=== PATIENT | female | born 1930 | race Caucasian/White ===

== ENCOUNTER → 2016-11-28 | Outpatient (CLI) | payer BC ==
[~2016-11-28] MED LIST: ACC10 PO; ACET-1311 PO; ARTISPR PO; ASPI81TA28 PEG; ATOR-24 PEG; BISA10SU3 PR; CALC-354 PO; CALC200T PEG; CLCUDL PEG; DOXY-300; IPRASOL4 INH; LANS30TA3 PEG; LPT40 PO; MCRK20 PEG; METO50TA16 PEG; METO50TA17 PEG; MOMLX PEG; MRLP527 PEG; MULT-1028 PEG; NUTR-673 PEG; PRNJ PO; QUIN1TAB PEG; SALI0.6510 NAE; SERT1TAB88 PEG; SODIENE PR; ZLF50 PO; [UNRECOGNIZED DRUG - CODE] PO
[2016-11-28 08:37] LABS: ALT/SGPT 19 U/L (12-78); BLOOD UREA NITROGEN 31 mg/dl (7-18); BUN/CREATININE RATIO 32.3 (10-20); CALCIUM 8.4 mg/dl (8.5-10.1); CARBON DIOXIDE 30 mmol/L (21-32); CHLORIDE 105 mmol/L (98-107); CREATININE 0.97 mg/dl (0.60-1.20); GLUCOSE 104 mg/dl (70-99); POTASSIUM 3.5 mmol/L (3.5-5.1); SODIUM 142 mmol/L (136-145)
[2016-11-28 08:40] LABS: ALB/GLOB RATIO 0.8 (0.9-2); ALKALINE PHOSPHATASE 70 U/L (45-117); AST/SGOT 19 U/L (15-37)
== END ==
LOC: C.LABCC 07:39
PROVIDERS: ATTEND Internal Medicine
DX: Z93.1 Gastrostomy status (principal); Z86.73 Personal history of transient ischemic attack (TIA), and cerebral infarction without residual deficits

== ENCOUNTER 2017-05-01 14:23 | Inpatient (IN) | payer BC ==
[2017-05-01] VITALS (10 sets, daily range): BP systolic 99–137; BP diastolic 68–88; PULSE 79–119; TEMP 36.6–37.6; O2SAT 96–97; Ht 160 cm; Wt 58.5 kg
[~2017-05-01] VITALS: Ht 160 cm; Wt 58.5 kg
[~2017-05-01 14:23] MED LIST changes: -ARTISPR PO; -ATOR-24 PEG; -BISA10SU3 PR; -CALC200T PEG; -DOXY-300; -IPRASOL4 INH; -METO50TA16 PEG; -MOMLX PEG; -MRLP527 PEG; -MULT-1028 PEG; -NUTR-673 PEG; -PRNJ PO; -QUIN1TAB PEG; -SALI0.6510 NAE; -SERT1TAB88 PEG; -SODIENE PR
[2017-05-01] MEDS ORDERED: IPRASOL4 INH (15:12)
[2017-05-01] MEDS ORDERED: SODIENE PR (15:12)
[2017-05-01] MEDS ORDERED: CALC200T PEG (15:12)
[2017-05-01] MEDS ORDERED: MULT-1028 PEG (15:12)
[2017-05-01] MEDS ORDERED: PRNJ PO (15:12)
[2017-05-01] MEDS ORDERED: QUIN1TAB PEG (15:12)
[2017-05-01] MEDS ORDERED: ATOR-24 PEG (15:12)
[2017-05-01] MEDS ORDERED: METO50TA16 PEG (15:12)
[2017-05-01] MEDS ORDERED: SERT1TAB88 PEG (15:12)
[2017-05-01] MEDS ORDERED: BISA10SU3 PR (15:12)
[2017-05-01] MEDS ORDERED: ARTISPR PO (15:12)
[2017-05-01] MEDS ORDERED: NUTR-673 PEG (15:12)
[2017-05-01] MEDS ORDERED: MRLP527 PEG (15:12)
[2017-05-01] MEDS ORDERED: MOMLX PEG (15:12)
[2017-05-01] MEDS ORDERED: SALI0.6510 NAE (15:12)
[2017-05-01 15:14] LABS: BASO % 0.4 %; BASO ABS # 0.05 K/uL (0-0.2); COMPLETE YES; EOS % 1.2 %; HEMATOCRIT 47.7 % (37-47); IG% 0.4 %; LYMPH % 17.6 %; LYMPH ABS # 2.49 K/uL (1.2-3.4); MEAN CELL VOLUME 101.3 fL (80-100); MEAN CORPUSCULAR HEMOGLOBIN 31.4 pg (25-34); MEAN PLATELET VOLUME 12.2 fL (7.4-10.4); MONO % 9.9 %; NEUT % 70.5 %; PLATELET COUNT 218 K/uL (130-400); RED BLOOD COUNT 4.71 M/uL (4.2-5.4); WHITE BLOOD COUNT 14.11 K/uL (4.8-10.8)
[2017-05-01 15:23] LABS: PROTHROMBIN TIME (PATIENT) 11.1 SECONDS (9.0-12.0)
--- NOTE | 2017-05-01 15:23 | EMERGENCY ROOM VISIT NOTE ---
History Report prepared by Madi: Willa Valenzuela Under the Supervision of: Dr. Dariusz Trinidad M.D. First contact with patient: 15:03 Chief Complaint: RESPIRATORY DISTRESS Stated Complaint: BREATHING DIFFICULTY Nursing Triage Summary: pt here with increased resp distress over the past couple days. pt has audible rales, tachypneic. pt is nonverbal, bedridden from 2 previous strokes. pt lives at [facility]. History of Present Illness The patient is a 86 year old female who presents to the Emergency Room with complaints of constant shortness of breath beginning last night. Per nursing staff, the patient lives at [facility] and is nonverbal and bedridden. She has a history of 2 strokes. The patient's family note that she is on a feeding tube and has a history of CHF. They report that they got a call last night from her living facility staff noting that the patient's oxygen saturations were low. HPI limited secondary to patient being nonverbal. Source of History: family, nursing staff History Limited By: other (nonverbal) Onset: last night Position: other (global) Quality: other (SOB) Timing: constant Review of Systems See HPI for pertinent positives & negatives. ROS limited secondary to pt being nonverbal. Past Medical & Surgical Medical Problems: (1) Acute respiratory failure with hypoxia (2) Alzheimer's Disease (3) Depression (4) Diaphragmatic Hernia (5) Dyslipidemia (6) GERD (gastroesophageal reflux disease) (7) Hip fracture (8) History Of Falling (9) HTN (hypertension) (10) Mixed Hyperlipidemia (11) Osteoporosis Nos (12) Scoliosis Nec (13) Vitamin D Deficiency Nos Family History Diabetes mellitus Heart disease Hypertension Social History Smoking Status: Never Smoker Alcohol Use: none Drug Use: none Marital Status: single, Housing Status: lives alone Occupation Status: retired Current/Historical Medications Scheduled Aspirin (Aspirin Ec), 81 MG PEG QAM Atorvastatin (Lipitor), 40 MG PEG HS Calcium Carbonate-Vitamin D (Oscal 500/200 D-3), 1 TAB PEG BID Enteral Nutrition Formula (Jevity 1.5 [place]), PEG UD Ipratropium-Albuterol (Duoneb), 1 TREATMENT INH QID Metoprolol Tartrate (Lopressor) (Lopressor), 50 MG PEG Q12 Multiple Vitamins W/ Iron (Multi Vitamin with Iron), 1 TAB PEG QAM Polyethylene (Polyethylene Glycol 3350), 17 GM PEG DAILY Quinapril HCl (Quinapril HCl), 10 MG PEG QAM Sertraline HCl (Sertraline HCl), 25 MG PEG QPM Scheduled PRN Acetaminophen (Tylenol), 650 MG PO Q6 PRN for Pain Artificial Saliva (Biotene Moisturizing Mout), 1 SPRAY PO Q6 PRN for DRY MOUTH Bisacodyl (Dulcolax), 1 SUPP AR DAILY PRN for NO BM IN DAY 3 Prune Juice (Prune Juice ), 8 OZ PO DAILY PRN for NO BM IN 2 DAYS Saline ([place] Nasal [place]), 2 SPRAY HECTOR DAILY PRN for NASAL STUFFINESS Sodium Phosphate/Biphosphate (Fleet Enema), 1 EA AR DAILY PRN for NO BM IN DAY 4 Allergies Coded Allergies: No Known Allergies (Unverified , 05/01/17) Physical Exam Vital Signs Date Time Temp Pulse Resp B/P (MAP) Pulse Ox O2 Delivery O2 Flow Rate FiO2 05/01/17 18:00 118 20 102/84 95 BiPAP 05/01/17 17:30 117 36 111/73 95 BiPAP 05/01/17 17:05 115 33 106/75 98 BiPAP 05/01/17 16:30 121 35 137/88 95 BiPAP 05/01/17 16:22 37.6 119 44 137/88 96 BiPAP 05/01/17 16:01 119 96 05/01/17 15:59 119 24 96 Nasal Cannula 4.0 05/01/17 15:45 119 36 137/88 96 BiPAP 05/01/17 14:38 37.6 127 44 123/87 88 Room Air 05/01/17 14:38 96 Nasal Cannula 6.0 Free Flow/Blow[place] 05/01/17 14:31 128 Physical Exam GENERAL: Patient is a healthy-appearing well-nourished [] HEAD: Normocephalic atraumatic EYES: Ocular movements intact pupils equal and react to light OROPHARYNX mucous membranes are moist no exudates present no erythema or edema present NECK: Supple no nuchal rigidity CHEST: Good equal expansion LUNGS: Appears short of breath, air hungry, rales at bases bilaterally CARDIAC: Normal S1 and S2 ABDOMEN: Soft nontender no guarding BACK: No CVA tenderness EXTREMITIES: No pain upon palpation normal muscle strength in all groups no clubbing cyanosis or edema NEURO: Patient is following commands and answering questions appropriately. Alert and oriented x3 Cranial Nerves 2-12 grossly intact Medical Decision & Procedures ER Provider Diagnostic Interpretation: X-ray results as stated below per interpretation by me and the radiologist: CHEST ONE VIEW PORTABLE FINDINGS: Atherosclerosis of the aortic arch. The left heart border is obscured due to left basilar opacity, new from prior, likely left basilar consolidation and effusion. Mildly low lung volumes with hypoventilatory changes. S-shaped scoliotic curvature of the thoracolumbar spine. Cholecystectomy clips noted. IMPRESSION: 1. Left basilar consolidation possibly with effusion, concerning for pneumonia. Electronically signed by: Jona Wallace M.D. 05/01/2017 3:33 PM Dictated Date/Time: 05/01/2017 3:31 PM Laboratory Results 05/01/17 15:00 Red Blood Count 4.71, Mean Corpuscular Volume 101.3, Mean Corpuscular Hemoglobin 31.4, Mean Corpuscular Hemoglobin Concent 31.0, Mean Platelet Volume 12.2, Neutrophils (%) (Auto) 70.5, Lymphocytes (%) (Auto) 17.6, Monocytes (%) ( Auto) 9.9, Eosinophils (%) (Auto) 1.2, Basophils (%) (Auto) 0.4, Neutrophils # ( Auto) 9.94, Lymphocytes # (Auto) 2.49, Monocytes # (Auto) 1.40, Eosinophils # ( Auto) 0.17, Basophils # (Auto) 0.05 05/01/17 15:00 Test 05/01/17 15:00 05/01/17 15:01 05/01/17 15:30 05/01/17 16:02 White Blood Count 14.11 K/uL (4.8-10.8) Red Blood Count 4.71 M/uL (4.2-5.4) Hemoglobin 14.8 g/dL (12.0-16.0) Hematocrit 47.7 % (37-47) Mean Corpuscular Volume 101.3 fL (80-100) Mean Corpuscular Hemoglobin 31.4 pg (25-34) Mean Corpuscular Hemoglobin Concent 31.0 g/dl (32-36) Platelet Count 218 K/uL (130-400) Mean Platelet Volume 12.2 fL (7.4-10.4) Neutrophils (%) (Auto) 70.5 % Lymphocytes (%) (Auto) 17.6 % Monocytes (%) (Auto) 9.9 % Eosinophils (%) (Auto) 1.2 % Basophils (%) (Auto) 0.4 % Neutrophils # (Auto) 9.94 K/uL (1.4-6.5) Lymphocytes # (Auto) 2.49 K/uL (1.2-3.4) Monocytes # (Auto) 1.40 K/uL (0.11-0.59) Eosinophils # (Auto) 0.17 K/uL (0-0.5) Basophils # (Auto) 0.05 K/uL (0-0.2) RDW Standard Deviation 59.3 fL (36.4-46.3) RDW Coefficient of Variation 15.8 % (11.5-14.5) Immature Granulocyte % (Auto) 0.4 % Immature Granulocyte # (Auto) 0.06 K/uL (0.00-0.02) Prothrombin Time 11.1 SECONDS (9.0-12.0) Prothromb Time International Ratio 1.0 (0.9-1.1) Anion Gap 9.0 mmol/L (3-11) Estimated GFR () 43.0 Estimated GFR (Non- 37.1 BUN/Creatinine Ratio 40.1 (10-20) Calcium Level 9.0 mg/dl (8.5-10.1) Total Bilirubin 0.5 mg/dl (0.2-1) Aspartate Amino Transf (AST/SGOT) 26 U/L (15-37) Alanine Aminotransferase (ALT/SGPT) 31 U/L (12-78) Alkaline Phosphatase 84 U/L (45-117) Total Creatine Kinase 196 U/L (26-192) Creatine Kinase MB 0.7 ng/ml (0.5-3.6) Creatine Kinase MB Ratio 0.4 (0-3.0) Pro-B-Type Natriuretic Peptide 551 pg/ml (0-1800) Total Protein 7.6 gm/dl (6.4-8.2) Albumin 3.2 gm/dl (3.4-5.0) Globulin 4.4 gm/dl (2.5-4.0) Albumin/Globulin Ratio 0.7 (0.9-2) Bedside Lactic Acid Venous 2.15 mmol/L (0.90-1.70) Urine Color YELLOW Urine Appearance CLOUDY (CLEAR) Urine pH 7.0 (4.5-7.5) Urine Specific [place] 1.021 (1.000-1.030) Urine Protein 1+ (NEG) Urine Glucose (UA) NEG (NEG) Urine Ketones NEG (NEG) Urine Occult Blood TRACE (NEG) Urine Nitrite NEG (NEG) Urine Bilirubin NEG (NEG) Urine Urobilinogen NEG (NEG) Urine Leukocyte Esterase LARGE (NEG) Urine WBC (Auto) >30 /hpf (0-5) Urine RBC (Auto) 0-4 /hpf (0-4) Urine Hyaline Casts (Auto) 0 /lpf (0-5) Urine Epithelial Cells (Auto) 0-5 /lpf (0-5) Urine Bacteria (Auto) 2+ (NEG) Arterial Blood pH 7.49 (7.35-7.45) Arterial Blood Partial Pressure CO2 35 mmHg (35-46) Arterial Blood Partial Pressure O2 128 mm/Hg (80-95) Arterial Blood HCO3 26 mmol/L (19-24) Arterial Blood Oxygen Saturation 98.9 % (90-95) Arterial Blood Base Excess 3.0 mEq/L (-9-1.8) Arterial Blood Gas Delivery ZM85--30 PERCENT Nacho Test POS (POS) Test 05/01/17 16:57 Influenza Type A (RT-PCR) Neg for Influ A (NEG) Influenza Type A Antigen Neg for Influ A (NEG) Influenza Type B Antigen Neg for Influ B (NEG) Influenza Type B (RT-PCR) Neg for Influ B (NEG) Labs reviewed by ED physician. Medications Administered Medications (Trade) Dose Ordered Sig/Ann Route Start Time Stop Time Status Last Admin Dose Admin Albuterol/ Ipratropium (Duoneb) 12 ml ONE ONCE INH 05/01/17 15:30 05/01/17 15:31 DC 05/01/17 15:59 12 ML Piperacillin Sod/ Tazobactam Sod (Zosyn Iv) 4.5 gm NOW STAT IV 05/01/17 15:24 05/01/17 15:26 DC 05/01/17 16:27 4.5 GM Vancomycin HCl 1000 mg/Sodium Chloride 270 ml @ 125 mls/hr NOW STAT IV 05/01/17 15:24 05/01/17 17:33 DC 05/01/17 16:24 125 MLS/HR Sodium Chloride 500 ml @ 999 mls/hr Q31M STAT IV 05/01/17 15:26 05/01/17 15:56 DC 05/01/17 15:42 999 MLS/HR Magnesium Sulfate (Magnesium Sulfate) 1 gm NOW STAT IV 05/01/17 15:45 05/01/17 15:49 DC 05/01/17 16:25 1 GM Sodium Chloride 500 ml @ 999 mls/hr Q31M STAT IV 05/01/17 15:45 05/01/17 16:15 DC 05/01/17 15:45 999 MLS/HR ECG Indication: SOB/dyspnea Rate (beats per minute): 125 Rhythm: sinus tachycardia Findings: no acute ischemic change, no ectopy, other (old inferior infarct) ED Course 1503: Past medical records reviewed. The patient was evaluated in room C2. A complete history and physical examination was performed. 1524: Vancomycin HCl 1000mg/Sodium Chloride 270ml @ 125mls/hr IV, Zosyn IV 4.5gm IV. 1530: Duoneb 12ml INH. 1543: I discussed the patient's case with Dr. Boss, he has agreed to evaluate the patient for further management and care. 1545: Sodium Chloride 500 ml @ 999 mls/hr IV, Magnesium Sulfate 1gm IV. 1549: Upon reexamination the patient is doing well. I discussed results and treatment plan with the patient's family. They verbalize agreement and understanding. I spoke with Dr. Boss from the [facility] Hospitalist Service. The patient will be evaluated for further management. 0600: Levofloxacin 500mg IV. Medical Decision Differential diagnosis: Etiologies such as infections, reactive airway disease, pneumonia, pneumothorax , COPD, CHF, cardiac ischemia, pulmonary embolism, musculoskeletal, gastrointestinal, as well as others were entertained. Medication Reconciliation: I attest that I have personally reviewed the patient' s current medication list Blood Pressure Screening: Patient was found to have normal blood pressure on screening and does not require follow up. This is a 89-year-old female that presents emergency department hypoxic. The patient has elevation in white blood cell count and also has an elevation in her lactic acid. An IV was established, the patient was given Zosyn, Levaquin, vancomycin. Was also placed on BiPAP and given an hour-long breathing treatment along with magnesium. I did discuss the case with the hospitalist service who agreed to admit the patient. Patient was in agreement with the treatment plan. Consults Time Called: 1941 Consulting Physician: Dr. Boss [facility] Returned Call: 1944 I discussed the patient's case with Dr. Boss, he has agreed to evaluate the patient for further management and care. Impression Primary Impression: Hypoxia Additional Impression: Pneumonia Scribe Attestation The scribe's documentation has been prepared under my direction and personally reviewed by me in its entirety. I confirm that the note above accurately reflects all work, treatment, procedures, and medical decision making performed by me. Departure Information Dispostion Being Evaluated By Hospitalist Referrals TauntonNiall (PCP) Patient Instructions Asthma - [facility], COPD - [facility], Croup - [facility], My [facility] Problem Qualifiers Additional Impression: Pneumonia Pneumonia type: due to unspecified organism Laterality: right Lung location : unspecified part of lung Qualified Codes: J18.9 - Pneumonia, unspecified organism
[2017-05-01] MEDS ORDERED: PIPERACILLIN/TAZOBACTAM 4.5 GM/100ML D5W IV STA (15:24)
[2017-05-01] MEDS ORDERED: VANCOMYCIN INJ 1,000 MG in SODIUM CHLORIDE 0.9% 250ML 250 ML IV STA (15:24)
[2017-05-01] MEDS ORDERED: SODIUM CHLORIDE 0.9% 500ML 500 ML IV STA ×3 (15:26→19:40)
[2017-05-01] MEDS ORDERED: DOXY-300 (15:29)
[2017-05-01] MEDS ORDERED: ALBUT/IPRATROP 3MG/0.5MG NEB 3 ML VIAL INH ONE (15:30)
--- NOTE | 2017-05-01 15:34 | DIAGNOSTIC IMAGING REPORT ---
CHEST ONE VIEW PORTABLE CLINICAL HISTORY: 86 years-old Female presenting with Pt c/o SOB. TECHNIQUE: Portable upright AP view of the chest was obtained. COMPARISON: 02/02/2016. FINDINGS: Atherosclerosis of the aortic arch. The left heart border is obscured due to left basilar opacity, new from prior, likely left basilar consolidation and effusion. Mildly low lung volumes with hypoventilatory changes. S-shaped scoliotic curvature of the thoracolumbar spine. Cholecystectomy clips noted. IMPRESSION: 1. Left basilar consolidation possibly with effusion, concerning for pneumonia. Electronically signed by: Jona Wallace M.D. 05/01/2017 3:33 PM Dictated Date/Time: 05/01/2017 3:31 PM
[2017-05-01 15:35] LABS: ALT/SGPT 31 U/L (12-78); AST/SGOT 26 U/L (15-37); BLOOD UREA NITROGEN 52 mg/dl (7-18); BUN/CREATININE RATIO 40.1 (10-20); CARBON DIOXIDE 29 mmol/L (21-32); CHLORIDE 114 mmol/L (98-107); GLUCOSE 101 mg/dl (70-99); POTASSIUM 4.1 mmol/L (3.5-5.1); SODIUM 152 mmol/L (136-145)
[2017-05-01 15:40] LABS: ALB/GLOB RATIO 0.7 (0.9-2); ALKALINE PHOSPHATASE 84 U/L (45-117); CKMB/CK RATIO 0.4 (0-3.0)
[2017-05-01] MEDS ORDERED: MAGNESIUM SULFATE 1GM / D5W 1 GM BAG IV STA (15:45)
[2017-05-01 16:20] LABS: ARTERIAL BLD GAS O2 SATURATION 98.9 % (90-95); ARTERIAL BLOOD GAS HCO3 26 mmol/L (19-24); ARTERIAL BLOOD GAS PO2 128 mm/Hg (80-95); ARTERIAL BLOOD GAS pH 7.49 (7.35-7.45)
[2017-05-01 16:22] LABS: ALLEN TEST POS (POS); O2 ADMINISTRATION FI02--40 PERCENT
[2017-05-01 17:21] LABS: URINE APPEARANCE CLOUDY (CLEAR); URINE BILIRUBIN NEG (NEG); URINE COLOR YELLOW; URINE EPITHELIAL CELL AUTO 0-5 /lpf (0-5); URINE NITRITE NEG (NEG); URINE SPECIFIC GRAVITY 1.021 (1.000-1.030); UROBILINOGEN NEG (NEG); ZZURINE CULT IF INDIC CATH YES
[2017-05-01 17:22] LABS: MANUAL MICROSCOPIC REQUIRED? NO; REVIEW REQ? NO
[2017-05-01] MEDS ORDERED: SCOPOLAMINE 1.5 MG TDSY TD PRN (18:30)
[2017-05-01] MEDS ORDERED: LORAZEPAM 2 MG/ML 1 ML VIAL IV PRN (18:30)
[2017-05-01] MEDS ORDERED: ONDANSETRON INJ 2 MG/ML 2 ML VIAL IV PRN (18:30)
--- NOTE | 2017-05-01 18:35 | History and Physical ---
History & Physical Date & Time of Service: May 01, 2017 at 18:27 Chief Complaint: Breathing Difficulty Primary Care Physician: Niall Jay History of Present Illness Source: family Ms. Gonzalez is an 86 y/o female with PMHx of CVA x 2, Dementia, HLD, GERD, HTN, and Diastolic CHF who presents to the ED for acute respiratory distress. Patient is a resident of [facility]. She is non-verbal, bedridden, and has a PEG tube. History obtained from son's at bedside which is limited. Per their account, they were called by [facility] as patient was noted to have low oxygen saturations. Sons report that she was started on an antibiotic while there. She presented to the ED with tachycardia and tachypnea and was noted to be hypoxic at 88%. She received an hour-long Duoneb and son's state she appeared to improve. She began to experience more respiratory distress and was placed on BiPAP and continued to be tachycardic and tachypneic. Patient opens her eyes to her name but was not following commands. Had discussion with son's at bedside about code status who initially stated "no long-term ventilator" and CPR only if it would not be something terminal. Did explain that in these situations recovery is slim and it is hard to predict once intubation occurs what her general response will be. Dr. Boss discussed with son's at bedside. Explained that she may possibly have an aspiration pneumonia vs healthcare associated pneumonia. After discussion, the plan is to continue non-invasive measures including IV antibiotics, BiPAP, and implement medications to promote comfort while actively treating. They would like to continue to monitor overnight and pending response consideration for conversion to comfort measures only/Hospice. Past Medical/Surgical History Medical Problems: (1) Depression Status: Chronic (2) Dyslipidemia Status: Chronic (3) GERD (gastroesophageal reflux disease) Status: Chronic (4) Hip fracture Permanent Comment: bilat Status: Resolved (5) HTN (hypertension) Status: Chronic Family History Diabetes mellitus Heart disease Hypertension Social History Smoking Status: Never Smoker Smokeless Tobacco Use: No Alcohol Use: none Drug Use: none Marital Status: single, Housing status: intermediate, other Occupational Status: retired Immunizations History of Influenza Vaccine: Yes Influenza Vaccine Date: Aug 07, 2012 History of Tetanus Vaccine?: Unknown History of Pneumococcal: No History of Hepatitis B Vaccine: No Multi-Drug Resistant Organisms History of MDRO: No Allergies Coded Allergies: No Known Allergies (Unverified , 05/01/17) Home Medications Scheduled Aspirin (Aspirin Ec), 81 MG PEG QAM Atorvastatin (Lipitor), 40 MG PEG HS Calcium Carbonate-Vitamin D (Oscal 500/200 D-3), 1 TAB PEG BID Enteral Nutrition Formula (Jevity 1.5 Jordan), PEG UD Ipratropium-Albuterol (Duoneb), 1 TREATMENT INH QID Metoprolol Tartrate (Lopressor) (Lopressor), 50 MG PEG Q12 Multiple Vitamins W/ Iron (Multi Vitamin with Iron), 1 TAB PEG QAM Polyethylene (Polyethylene Glycol 3350), 17 GM PEG DAILY Quinapril HCl (Quinapril HCl), 10 MG PEG QAM Sertraline HCl (Sertraline HCl), 25 MG PEG QPM Scheduled PRN Acetaminophen (Tylenol), 650 MG PO Q6 PRN for Pain Artificial Saliva (Biotene Moisturizing Mout), 1 SPRAY PO Q6 PRN for DRY MOUTH Bisacodyl (Dulcolax), 1 SUPP GA DAILY PRN for NO BM IN DAY 3 Prune Juice (Prune Juice ), 8 OZ PO DAILY PRN for NO BM IN 2 DAYS Saline (Kidder Nasal [place]), 2 SPRAY HECTOR DAILY PRN for NASAL STUFFINESS Sodium Phosphate/Biphosphate (Fleet Enema), 1 EA GA DAILY PRN for NO BM IN DAY 4 Review of Systems Unobtainable as patient is non-verbal Physical Exam Vital Signs Date Time Temp Pulse Resp B/P (MAP) Pulse Ox O2 Delivery O2 Flow Rate FiO2 05/01/17 17:05 115 33 106/75 98 BiPAP 05/01/17 16:30 121 35 137/88 95 BiPAP 05/01/17 16:22 37.6 119 44 137/88 96 BiPAP 05/01/17 16:01 119 96 05/01/17 15:59 119 24 96 Nasal Cannula 4.0 05/01/17 15:45 119 36 137/88 96 BiPAP 05/01/17 14:38 37.6 127 44 123/87 88 Room Air 05/01/17 14:38 96 Nasal Cannula 6.0 Free Flow/Blowby 05/01/17 14:31 128 General Appearance: + moderate distress Head: normocephalic, atraumatic Eyes: sclerae normal ENT: + pertinent finding (dry crusting of oral mucosa) Neck: supple, no JVD, trachea midline Respiratory/Chest: + respiratory distress, + accessory muscle use, + rales ( course) Cardiovascular: no gallop, no murmur, + tachycardia Abdomen/GI: normal bowel sounds, non tender, soft Extremities/Musculoskelatal: no pedal edema Neurologic/Psych: alert Skin: normal color, + pallor Diagnostics Laboratory Results Results Past 24 Hours Test 05/01/17 15:00 05/01/17 15:01 05/01/17 15:30 05/01/17 16:02 Range/Units White Blood Count 14.11 4.8-10.8 K/uL Red Blood Count 4.71 4.2-5.4 M/uL Hemoglobin 14.8 12.0-16.0 g/dL Hematocrit 47.7 37-47 % Mean Corpuscular Volume 101.3 80-100 fL Mean Corpuscular Hemoglobin 31.4 25-34 pg Mean Corpuscular Hemoglobin Concent 31.0 32-36 g/dl Platelet Count 218 130-400 K/uL Mean Platelet Volume 12.2 7.4-10.4 fL Neutrophils (%) (Auto) 70.5 % Lymphocytes (%) (Auto) 17.6 % Monocytes (%) (Auto) 9.9 % Eosinophils (%) (Auto) 1.2 % Basophils (%) (Auto) 0.4 % Neutrophils # (Auto) 9.94 1.4-6.5 K/uL Lymphocytes # (Auto) 2.49 1.2-3.4 K/uL Monocytes # (Auto) 1.40 0.11-0.59 K/uL Eosinophils # (Auto) 0.17 0-0.5 K/uL Basophils # (Auto) 0.05 0-0.2 K/uL RDW Standard Deviation 59.3 36.4-46.3 fL RDW Coefficient of Variation 15.8 11.5-14.5 % Immature Granulocyte % (Auto) 0.4 % Immature Granulocyte # (Auto) 0.06 0.00-0.02 K/uL Prothrombin Time 11.1 9.0-12.0 SECONDS Prothromb Time International Ratio 1.0 0.9-1.1 Sodium Level 152 136-145 mmol/L Potassium Level 4.1 3.5-5.1 mmol/L Chloride Level 114 98-107 mmol/L Carbon Dioxide Level 29 21-32 mmol/L Anion Gap 9.0 3-11 mmol/L Blood Urea Nitrogen 52 7-18 mg/dl Creatinine 1.30 0.60-1.20 mg/dl Estimated GFR () 43.0 Estimated GFR (Non- 37.1 BUN/Creatinine Ratio 40.1 10-20 Random Glucose 101 70-99 mg/dl Calcium Level 9.0 8.5-10.1 mg/dl Total Bilirubin 0.5 0.2-1 mg/dl Aspartate Amino Transf (AST/SGOT) 26 15-37 U/L Alanine Aminotransferase (ALT/SGPT) 31 12-78 U/L Alkaline Phosphatase 84 45-117 U/L Total Creatine Kinase 196 26-192 U/L Creatine Kinase MB 0.7 0.5-3.6 ng/ml Creatine Kinase MB Ratio 0.4 0-3.0 Troponin I < 0.015 0-0.045 ng/ml Pro-B-Type Natriuretic Peptide 551 0-1800 pg/ml Total Protein 7.6 6.4-8.2 gm/dl Albumin 3.2 3.4-5.0 gm/dl Globulin 4.4 2.5-4.0 gm/dl Albumin/Globulin Ratio 0.7 0.9-2 Bedside Lactic Acid Venous 2.15 0.90-1.70 mmol/L Urine Color YELLOW Urine Appearance CLOUDY CLEAR Urine pH 7.0 4.5-7.5 Urine Specific [place] 1.021 1.000-1.030 Urine Protein 1+ NEG Urine Glucose (UA) NEG NEG Urine Ketones NEG NEG Urine Occult Blood TRACE NEG Urine Nitrite NEG NEG Urine Bilirubin NEG NEG Urine Urobilinogen NEG NEG Urine Leukocyte Esterase LARGE NEG Urine WBC (Auto) >30 0-5 /hpf Urine RBC (Auto) 0-4 0-4 /hpf Urine Hyaline Casts (Auto) 0 0-5 /lpf Urine Epithelial Cells (Auto) 0-5 0-5 /lpf Urine Bacteria (Auto) 2+ NEG Arterial Blood pH 7.49 7.35-7.45 Arterial Blood Partial Pressure CO2 35 35-46 mmHg Arterial Blood Partial Pressure O2 128 80-95 mm/Hg Arterial Blood HCO3 26 19-24 mmol/L Arterial Blood Oxygen Saturation 98.9 90-95 % Arterial Blood Base Excess 3.0 -9-1.8 mEq/L Arterial Blood Gas Delivery OD21--[id number] PERCENT Nacho Test POS POS Test 05/01/17 16:57 Range/Units Influenza Type A Antigen Neg for Influ A NEG Influenza Type B Antigen Neg for Influ B NEG Microbiology Results 05/01/17 Blood Culture, Received Pending 05/01/17 Blood Culture, Received Pending 05/01/17 Urine Culture, Received Pending Diagnostic Radiology CHEST ONE VIEW PORTABLE CLINICAL HISTORY: 86 years-old Female presenting with Pt c/o SOB. TECHNIQUE: Portable upright AP view of the chest was obtained. COMPARISON: 02/02/2016. FINDINGS: Atherosclerosis of the aortic arch. The left heart border is obscured due to left basilar opacity, new from prior, likely left basilar consolidation and effusion. Mildly low lung volumes with hypoventilatory changes. S-shaped scoliotic curvature of the thoracolumbar spine. Cholecystectomy clips noted. IMPRESSION: 1. Left basilar consolidation possibly with effusion, concerning for pneumonia. EKG Sinus tachycardia Minimal voltage criteria for LVH, may be normal variant Inferior infarct , age undetermined Abnormal ECG When compared with ECG of 31-JAN-2016 06:31, Premature ventricular complexes are no longer Present Vent. rate has increased BY 50 BPM Inferior infarct is now Present T wave inversion now evident in Inferior leads Impression Assessment and Plan Ms. Gonzalez is an 86 y/o female with PMHx of CVA x 2, Dementia, HLD, GERD, HTN, and Diastolic CHF who presents to the ED for acute respiratory distress. Patient is a resident of [facility]. She is non-verbal, bedridden, and has a PEG tube. Suspect Aspiration vs Healthcare-Associated PNA. Sepsis due to Aspiration vs HCAP: - Discussion with son's at bedside to implement non-invasive treatment for condition using Abx, BiPAP, Morphine/Ativan for relief - pending response consideration for Hospice - Monitor on telemetry at this time while actively treating for Sepsis - repeat lactic remains elevated, leukocytosis present, and febrile - Levofloxacin 750 mg IV Q2D, Zosyn 3.375 IV Q8H, [facility] Was maintaining pressure but BP dropping and will bolus with 500 cc Acute Hypoxic Respiratory Failure: - Continue BiPAP CVA - Nonverbal/Bedridden/PEG Tube: - Hold tube feedings overnight except for giving medications - Will need reinstituted pending overnight response Chronic Diastolic CHF: - Patient appears dry but CTA with question of superimposed pleural effusion Comfort Measures: - She is not directly comfort measures only and will actively treat. However will hold non-essential meds - Morphine 1 mg Q3H PRN and Ativan 0.5 mg IV PRN - Scopolamine PRN if presence of copious secretions DVT Prophylaxis: TONE/SCDs Code Status: Discussed with son's and she will be placed as a DNR/DNI Disposition: - Prognosis guarded - Will need tube feedings reinstuted pending response and likely conversion to comfort measures/hospice - Resident of [facility] Resident Physician Supervision Note: I was present with Padmaja Galloway during the history and exam. I discussed the case with YVAN and agree with the findings and plan as documented in the note. Any exceptions or clarifications are listed here: 86 y/o chronically ill female - bedridden following mult CVAs - w/PEG tube - suspected to have aspirated - presents with tachypnea, SOB and became hypotensive as well - nonverbal at baseline OE Confused an restless elderly F S1,2 faint R Poor air entry - cannot cooperate with exam - no overt wheezing NT, ND + edema - no CC P: Following extensive discussion with family (inc son who is POA) - we will not pursue aggressive invasive measures - she is admitted to telemetry on Bipap - explained to son that we would use Morphine for comfort although we would cont to provide antibiotics and fluid/electrolyte management in event she can turn around. They are aware her prognosis is poor. Coverage for aspiration and Breathing treatments, IVF provided Documented By: Dallas Boss Level of Care Telemetry Advanced Directives Existing Living Will: No Existing Power of Contractor Field Hauling: Yes Resuscitation Status DO NOT RESUSCITATE VTE Prophylaxis VTE Risk Assessment Done? Y/N: Yes Risk Level: Moderate Given or contraindicated: RYAN Mccormack's Social Service Consult Lives in Snf
[2017-05-01] MEDS ORDERED: SODIUM CHLORIDE 0.9% 1000ML 1,000 ML IV SCH (18:45)
[2017-05-01] MEDS ORDERED: VANCOMYCIN CONSULT ACTIVE PRN (19:15)
[2017-05-01] MEDS ORDERED: LEVOFLOXACIN CONSULT ACTIVE PRN (19:15)
[2017-05-01] MEDS ORDERED: PIPERACILL/TAZOBAC CONSULT ACTIVE PRN (19:15)
[2017-05-01 19:33] LABS: INFLUENZA A PCR Neg for Influ A (NEG); INFLUENZA B PCR Neg for Influ B (NEG)
--- NOTE | 2017-05-01 19:35 | Pharmacy Progress Note ---
Pharmacy Abx Initial Consult Date of Service May 01, 2017. Pharmacy Dosing Scope Date of Consult: 05/01/17 Consultation requested by: Padmaja Galloway PA-C Pharmacy is consulted to initiate Vancomycin/Zosyn/Levaquin IV dosing therapy, order appropriate labs and adjust drug dose/frequency. Subjective The patient is a 86 year old female admitted on 05/01/17 from [facility] with increase oxygen needs. Objective Height (Feet): 5 Height (Inches): 3.00 Weight (Kilograms): 59.000 Vital Signs (Past 12Hrs) Vital Signs Past 12 Hours Date Time Temp Pulse Resp B/P (MAP) Pulse Ox O2 Delivery O2 Flow Rate FiO2 05/01/17 19:00 113 43 95/80 92 05/01/17 18:30 110 39 104/95 94 05/01/17 18:00 118 20 102/84 95 BiPAP 05/01/17 17:30 117 36 111/73 95 BiPAP 05/01/17 17:05 115 33 106/75 98 BiPAP 05/01/17 16:30 121 35 137/88 95 BiPAP 05/01/17 16:22 37.6 119 44 137/88 96 BiPAP 05/01/17 16:01 119 96 05/01/17 15:59 119 24 96 Nasal Cannula 4.0 05/01/17 15:45 119 36 137/88 96 BiPAP 05/01/17 14:38 37.6 127 44 123/87 88 Room Air 05/01/17 14:38 96 Nasal Cannula 6.0 Free Flow/Blowby 05/01/17 14:31 128 Lab Results (24Hrs) Laboratory Tests (24 Hours) Test 05/01/17 15:00 05/01/17 18:51 White Blood Count 14.11 K/uL (4.8-10.8) H Red Blood Count 4.71 M/uL (4.2-5.4) Hemoglobin 14.8 g/dL (12.0-16.0) Hematocrit 47.7 % (37-47) H Mean Corpuscular Volume 101.3 fL (80-100) H Mean Corpuscular Hemoglobin 31.4 pg (25-34) Mean Corpuscular Hemoglobin Concent 31.0 g/dl (32-36) L Platelet Count 218 K/uL (130-400) Mean Platelet Volume 12.2 fL (7.4-10.4) H Neutrophils (%) (Auto) 70.5 % Lymphocytes (%) (Auto) 17.6 % Monocytes (%) (Auto) 9.9 % Eosinophils (%) (Auto) 1.2 % Basophils (%) (Auto) 0.4 % Neutrophils # (Auto) 9.94 K/uL (1.4-6.5) H Lymphocytes # (Auto) 2.49 K/uL (1.2-3.4) Monocytes # (Auto) 1.40 K/uL (0.11-0.59) H Eosinophils # (Auto) 0.17 K/uL (0-0.5) Basophils # (Auto) 0.05 K/uL (0-0.2) Total Creatine Kinase 196 U/L (26-192) H Micro Results Date/Time Source Procedure Growth Status 05/01/17 16:02 Blood Blood Culture Pending Received 05/01/17 15:00 Blood Blood Culture Pending Received 05/01/17 15:30 Urine,Catheterized Urine Culture Pending Received Risk Factors for Resistance * Resident in a snf or extended-care facility Assessment & Plan Assessment 86 year old female initiated on Vancomycin/Zosyn/Levaquin IV for pulmonary source. Urine and blood cultures pending. MRSA nasal swab added to orders to aid in deescalation. Plan Vancomycin IV * Loading dose: 1000 mg (17 mg/kg) - given in the ER * Maintenance dose: 1000 mg IV (17 mg/kg) every 18 hours * Goal trough level for lung source: 15 to 20 mcg/mL * Trough level ordered for 05/03/17 @1330 prior to the 1400 dose * Pt was not given normal loading dose of ~25 mg/kg in the ER. Instead of adding to the given dose, initiate maintenance dose sooner. * If renal function does not improve towards baseline, current dosing likely too aggressive based on population kinetics- re-evaluate in the AM. Piperacillin/tazobactam IV * 4.5 g bolus administered over 30 minutes, then 3.375 g IV extended infusion every 8 hours for CrCl greater than 20 mL/min Levaquin IV * 750 mg IV every 24 hours * Reduce to every 48 hours for CrCl 20-49 mL/min Pharmacy will continue to follow and will adjust dose/frequency as necessary. Thank you.
[2017-05-01] MEDS ORDERED: LEVOFLOXACIN / D5W 750 MG in PREMIXED IN D5W 150 ML IV SCH (20:00)
[2017-05-01] MEDS: ALBUT/IPRATROP 3MG/0.5MG NEB 3 ML VIAL INH SCH (20:43)
[2017-05-01] MEDS ORDERED: METOPROLOL TARTRATE 50 MG TAB PEG SCH (21:00)
[2017-05-01] MEDS ORDERED: SERTRALINE HCL 50 MG TAB PEG SCH (21:00)
[2017-05-01] MEDS ORDERED: METOPROLOL TARTRATE 1 MG/ML VIAL IV PRN (21:30)
[2017-05-01] MEDS ORDERED: SODIUM CHLORIDE 0.45% 1000ML 1,000 ML IV SCH (22:00)
[2017-05-01] MEDS: PIPERACILL/TAZOBAC IV 3.375 GM in DEXTROSE 5% 100ML 100 ML IV SCH (22:56)
[2017-05-02] VITALS (16 sets, daily range): BP systolic 91–127; BP diastolic 67–89; PULSE 86–104; TEMP 36.1–36.7; O2SAT 92–100
[2017-05-02] MEDS: MoRPHine SULFATE 2 MG/ML CARP IV PRN (00:27)
[2017-05-02] MEDS ORDERED: VANCOMYCIN INJ 1,000 MG in SODIUM CHLORIDE 0.9% 250ML 250 ML IV SCH (02:00)
[2017-05-02] MEDS ORDERED: NURSING VERBAL MED ORDER ONE (03:45)
[2017-05-02] MEDS ORDERED: MoRPHine SULFATE 2 MG/ML CARP ONE (04:01)
[2017-05-02] MEDS ORDERED: MoRPHine SULFATE 2 MG/ML CARP IV STA (04:06)
[2017-05-02] MEDS ORDERED: LEVAQUIN 500MG / 100ML D5W IV ONE (06:00)
[2017-05-02] MEDS: PIPERACILL/TAZOBAC IV 3.375 GM in DEXTROSE 5% 100ML 100 ML IV SCH ×3 (06:01→21:36)
[2017-05-02 06:03] LABS: HEMATOCRIT 39.7 % (37-47); MEAN CELL VOLUME 104.2 fL (80-100); MEAN CORPUSCULAR HEMOGLOBIN 31.8 pg (25-34); MEAN CORPUSCULAR HGB CONC 30.5 g/dl (32-36); MEAN PLATELET VOLUME 12.3 fL (7.4-10.4); PLATELET COUNT 167 K/uL (130-400); RED BLOOD COUNT 3.81 M/uL (4.2-5.4); WHITE BLOOD COUNT 12.73 K/uL (4.8-10.8)
[2017-05-02 06:24] LABS: BUN/CREATININE RATIO 39.8 (10-20); CREATININE 1.2 mg/dl (0.60-1.20); POTASSIUM 4.2 mmol/L (3.5-5.1)
[2017-05-02] MEDS: ALBUT/IPRATROP 3MG/0.5MG NEB 3 ML VIAL INH SCH ×4 (08:16→19:04)
[2017-05-02] MEDS ORDERED: QUINAPRIL HCL 10 MG PO SCH (09:00)
--- NOTE | 2017-05-02 14:25 | Progress Note ---
Subjective Date of Service: May 02, 2017. Subjective Pt evaluation today including: conversation w/ family (sons at the bedside), lab review, review of inpatient medication list Pain: non responsive PO Intake: NPO Voiding: dorantes catheter in place patient still requiring BIPAP d/w family at the bedside, continue to provide supportive care with fluids, antibiotics, BIPAP if unable to wean off of BIPAP tomorrow then we will move to complete comfort care Problem List Medical Problems: (1) Confusion Status: Acute (2) Hypoxia Status: Acute (3) Leukocytosis Status: Acute (4) Multiple falls Status: Acute (5) Pneumonia Status: Acute (6) Stroke Status: Acute Review of Systems cannot review, non verbal Medications Current Inpatient Medications Medications (Trade) Dose Ordered Sig/Ann Route Start Time Stop Time Status Last Admin Dose Admin Ondansetron HCl (Zofran Inj) 4 mg Q6H PRN IV 05/01/17 18:30 05/31/17 18:29 Metoprolol Tartrate (Lopressor Tab) 50 mg Q12 PEG 05/01/17 21:00 05/31/17 20:59 Future Hold 05/01/17 21:07 50 MG Sertraline HCl (Zoloft Tab) 25 mg QPM PEG 05/01/17 21:00 05/31/17 20:59 Future Hold 05/01/17 21:07 25 MG Piperacillin Sod/ Tazobactam Sod 3.375 gm/Dextrose 115 ml @ 28.75 mls/ hr Q8H IV 05/01/17 22:00 05/08/17 21:59 05/02/17 06:01 28.75 MLS/HR Levofloxacin 750 mg/Prmx 150 ml @ 100 mls/hr Q48H IV 05/01/17 20:00 05/08/17 19:59 05/01/17 21:05 100 MLS/HR Morphine Sulfate (MoRPHine SULFATE INJ) 1 mg Q3H PRN IV 05/01/17 18:30 05/15/17 18:29 05/02/17 00:27 1 MG Scopolamine (Transderm-Scop Patch) 1.5 mg Q72H PRN TD 05/01/17 18:30 05/31/17 18:29 Lorazepam (Ativan Inj) 0.5 mg Q4H PRN IV 05/01/17 18:30 05/31/17 18:29 Albuterol/ Ipratropium (Duoneb) 3 ml QIDR INH 05/01/17 20:00 05/31/17 19:59 05/02/17 11:09 3 ML Piperacillin Sod/ Tazobactam Sod (Consult) 1 ea UD PRN N/A 05/01/17 19:15 05/31/17 19:14 Levofloxacin (Consult) 1 ea UD PRN N/A 05/01/17 19:15 05/31/17 19:14 Metoprolol Tartrate (Lopressor Iv) 2.5 mg Q4H PRN IV 05/01/17 21:30 05/31/17 21:29 Objective Vital Signs Date Time Temp Pulse Resp B/P (MAP) Pulse Ox O2 Delivery O2 Flow Rate FiO2 05/02/17 12:05 92 BiPAP 35 05/02/17 11:26 36.6 90 22 127/89 (102) 100 BiPAP 35 05/02/17 11:09 90 30 93 BiPAP/CPAP 35 05/02/17 11:09 90 93 35 05/02/17 08:17 104 26 96 BiPAP/CPAP 35 05/02/17 08:00 93 BiPAP 35 05/02/17 06:50 36.7 88 26 125/71 (89) 93 BiPAP 05/02/17 04:00 BiPAP 05/02/17 03:00 36.1 91 32 122/79 (93) 94 BiPAP 35 05/02/17 02:09 96 35 05/02/17 01:18 126/87 (100) 05/02/17 01:05 87 31 91/67 (75) 96 BiPAP 35 05/01/17 23:59 BiPAP 05/01/17 23:00 36.6 80 29 106/73 (84) 96 BiPAP 35 05/01/17 22:37 79 33 101/72 (82) 97 BiPAP 35 05/01/17 22:08 83 99/68 (78) 05/01/17 21:00 101 123/74 (90) 05/01/17 20:44 35 05/01/17 20:43 108 32 97 BiPAP/CPAP 35 05/01/17 20:03 96 40 05/01/17 20:00 BiPAP 05/01/17 19:40 37.2 109 40 103/72 (82) 97 BiPAP 40 05/01/17 19:00 113 43 95/80 92 05/01/17 18:30 110 39 104/95 94 05/01/17 18:00 118 20 102/84 95 BiPAP 05/01/17 17:30 117 36 111/73 95 BiPAP 05/01/17 17:05 115 33 106/75 98 BiPAP 05/01/17 16:30 121 35 137/88 95 BiPAP 05/01/17 16:22 37.6 119 44 137/88 96 BiPAP 05/01/17 16:01 119 96 05/01/17 15:59 119 24 96 Nasal Cannula 4.0 05/01/17 15:45 119 36 137/88 96 BiPAP 05/01/17 14:38 37.6 127 44 123/87 88 Room Air 05/01/17 14:38 96 Nasal Cannula 6.0 Free Flow/Blowby 05/01/17 14:31 128 Physical Exam General Appearance: + mild distress, + thin ENT: + pertinent finding (dry mucous membranes) Neck: supple, no adenopathy, no JVD, trachea midline Respiratory/Chest: + decreased breath sounds, + accessory muscle use, + crackles Cardiovascular: no edema, no gallop, no JVD, no murmur, + tachycardia Abdomen: non tender, soft, no organomegaly, + abnormal bowel sounds (hypoactive ) Extremities: normal inspection, no pedal edema, normal capillary refill Neurologic/Psychiatric: + motor weakness, + depressed affect, + disoriented Laboratory Results Last 24 Hours Test 05/01/17 15:00 05/01/17 15:01 05/01/17 15:30 05/01/17 16:02 White Blood Count 14.11 K/uL Red Blood Count 4.71 M/uL Hemoglobin 14.8 g/dL Hematocrit 47.7 % Mean Corpuscular Volume 101.3 fL Mean Corpuscular Hemoglobin 31.4 pg Mean Corpuscular Hemoglobin Concent 31.0 g/dl Platelet Count 218 K/uL Mean Platelet Volume 12.2 fL Neutrophils (%) (Auto) 70.5 % Lymphocytes (%) (Auto) 17.6 % Monocytes (%) (Auto) 9.9 % Eosinophils (%) (Auto) 1.2 % Basophils (%) (Auto) 0.4 % Neutrophils # (Auto) 9.94 K/uL Lymphocytes # (Auto) 2.49 K/uL Monocytes # (Auto) 1.40 K/uL Eosinophils # (Auto) 0.17 K/uL Basophils # (Auto) 0.05 K/uL RDW Standard Deviation 59.3 fL RDW Coefficient of Variation 15.8 % Immature Granulocyte % (Auto) 0.4 % Immature Granulocyte # (Auto) 0.06 K/uL Prothrombin Time 11.1 SECONDS Prothromb Time International Ratio 1.0 Sodium Level 152 mmol/L Potassium Level 4.1 mmol/L Chloride Level 114 mmol/L Carbon Dioxide Level 29 mmol/L Anion Gap 9.0 mmol/L Blood Urea Nitrogen 52 mg/dl Creatinine 1.30 mg/dl Estimated GFR () 43.0 Estimated GFR (Non- 37.1 BUN/Creatinine Ratio 40.1 Random Glucose 101 mg/dl Calcium Level 9.0 mg/dl Total Bilirubin 0.5 mg/dl Aspartate Amino Transf (AST/SGOT) 26 U/L Alanine Aminotransferase (ALT/SGPT) 31 U/L Alkaline Phosphatase 84 U/L Total Creatine Kinase 196 U/L Creatine Kinase MB 0.7 ng/ml Creatine Kinase MB Ratio 0.4 Troponin I < 0.015 ng/ml Pro-B-Type Natriuretic Peptide 551 pg/ml Total Protein 7.6 gm/dl Albumin 3.2 gm/dl Globulin 4.4 gm/dl Albumin/Globulin Ratio 0.7 Bedside Lactic Acid Venous 2.15 mmol/L Urine Color YELLOW Urine Appearance CLOUDY Urine pH 7.0 Urine Specific [place] 1.021 Urine Protein 1+ Urine Glucose (UA) NEG Urine Ketones NEG Urine Occult Blood TRACE Urine Nitrite NEG Urine Bilirubin NEG Urine Urobilinogen NEG Urine Leukocyte Esterase LARGE Urine WBC (Auto) >30 /hpf Urine RBC (Auto) 0-4 /hpf Urine Hyaline Casts (Auto) 0 /lpf Urine Epithelial Cells (Auto) 0-5 /lpf Urine Bacteria (Auto) 2+ Arterial Blood pH 7.49 Arterial Blood Partial Pressure CO2 35 mmHg Arterial Blood Partial Pressure O2 128 mm/Hg Arterial Blood HCO3 26 mmol/L Arterial Blood Oxygen Saturation 98.9 % Arterial Blood Base Excess 3.0 mEq/L Arterial Blood Gas Delivery [id number] PERCENT Nacho Test POS Test 7/14/17 16:57 05/01/17 18:51 05/02/17 05:21 Influenza Type A (RT-PCR) Neg for Influ A Influenza Type A Antigen Neg for Influ A Influenza Type B Antigen Neg for Influ B Influenza Type B (RT-PCR) Neg for Influ B Lactic Acid Level 2.9 mmol/L Troponin I 0.017 ng/ml White Blood Count 12.73 K/uL Red Blood Count 3.81 M/uL Hemoglobin 12.1 g/dL Hematocrit 39.7 % Mean Corpuscular Volume 104.2 fL Mean Corpuscular Hemoglobin 31.8 pg Mean Corpuscular Hemoglobin Concent 30.5 g/dl RDW Standard Deviation 61.7 fL RDW Coefficient of Variation 16.1 % Platelet Count 167 K/uL Mean Platelet Volume 12.3 fL Sodium Level 153 mmol/L Potassium Level 4.2 mmol/L Chloride Level 116 mmol/L Carbon Dioxide Level 30 mmol/L Anion Gap 7.0 mmol/L Blood Urea Nitrogen 48 mg/dl Creatinine 1.20 mg/dl Est Creatinine Clear Calc Drug Dose 27.8 ml/min Estimated GFR () 47.4 Estimated GFR (Non- 40.9 BUN/Creatinine Ratio 39.8 Random Glucose 88 mg/dl Calcium Level 8.0 mg/dl Assessment and Plan Ms. Gonzalez is an 86 y/o female with PMHx of CVA x 2, Dementia, HLD, GERD, HTN, and Diastolic CHF who presents to the ED for acute respiratory distress. Patient is a resident of [facility]. She is non-verbal, bedridden, and has a PEG tube. Suspect Aspiration vs Healthcare-Associated PNA. Sepsis due to Aspiration pneumonia vs HCAP: - stable today, but still requiring BIPAP - continue Levofloxacin 750 mg IV Q2D, Zosyn 3.375 IV Q8H, but d/c Vanco due to negative MRSA swab - [facility] - vitals more stable over the past 24 hours Acute Hypoxic Respiratory Failure: - Continue BiPAP, only on FiO2 35%, try to titrate off BIPAP CVA - Nonverbal/Bedridden/PEG Tube: - Hold tube feedings overnight except for giving medications Chronic Diastolic CHF: - Patient appears dry but CTA with question of superimposed pleural effusion Comfort Measures: - She is not directly comfort measures only and will actively treat. However will hold non-essential meds - Morphine 1 mg Q3H PRN and Ativan 0.5 mg IV PRN - Scopolamine PRN if presence of copious secretions DVT Prophylaxis: TONE/SCDs Code Status: Discussed with son's and she will be placed as a DNR/DNI Disposition: keep on BIPAP for now, if unable to titrate off by tomorrow then family would want to move to full comfort measures
[2017-05-03 00:13] VITALS: BP 127/68; PULSE 98; TEMP 36.7; O2SAT 98
[2017-05-03 00:52] VITALS: PULSE 99; O2SAT 96
[2017-05-03] MEDS: MoRPHine SULFATE 2 MG/ML CARP IV PRN ×2 (01:53→08:59)
[2017-05-03 04:42] VITALS: BP 110/77; PULSE 90; TEMP 37; O2SAT 99
[2017-05-03 06:00] LABS: HEMATOCRIT 39.8 % (37-47); MEAN CELL VOLUME 101.5 fL (80-100); MEAN CORPUSCULAR HEMOGLOBIN 30.4 pg (25-34); MEAN CORPUSCULAR HGB CONC 29.9 g/dl (32-36); MEAN PLATELET VOLUME 11.8 fL (7.4-10.4); PLATELET COUNT 144 K/uL (130-400); RED BLOOD COUNT 3.92 M/uL (4.2-5.4); WHITE BLOOD COUNT 10.98 K/uL (4.8-10.8)
[2017-05-03] MEDS: PIPERACILL/TAZOBAC IV 3.375 GM in DEXTROSE 5% 100ML 100 ML IV SCH (06:24)
[2017-05-03 06:50] LABS: BUN/CREATININE RATIO 38.2 (10-20); CALCIUM 8.5 mg/dl (8.5-10.1); CREATININE 1.1 mg/dl (0.60-1.20); POTASSIUM 3.5 mmol/L (3.5-5.1)
[2017-05-03 06:53] VITALS: BP 128/95; PULSE 98; TEMP 37; O2SAT 95
[2017-05-03 07:11] VITALS: PULSE 86; O2SAT 94
[2017-05-03] MEDS: ALBUT/IPRATROP 3MG/0.5MG NEB 3 ML VIAL INH SCH ×2 (07:11→07:12)
[2017-05-03] MEDS ORDERED: ALBUT/IPRATROP 3MG/0.5MG NEB 3 ML VIAL INH PRN (08:00)
[2017-05-03] MEDS ORDERED: MoRPHine SULFATE 4 MG/ML 1 ML CARP IV STA ×2 (08:16→09:12)
[2017-05-03] MEDS ORDERED: MoRPHine SULF/NSS 250MG/250ML 250 ML IV PRN (09:15)
--- NOTE | 2017-05-03 12:52 | Progress Note ---
Subjective Date of Service: May 03, 2017. Subjective Pt evaluation today including: conversation w/ family, physical exam, review of inpatient medication list Pain: no pain PO Intake: npo Voiding: dorantes catheter in place patient unable to wean off the BIPAP this AM d/w family, recommended moving to comfort care with her respiratory failure family agreed morphine drip started, patient's RR in the teens, appears comfortable will transfer to medical floor if she does not pass by this afternoon Problem List Medical Problems: (1) Confusion Status: Acute (2) Hypoxia Status: Acute (3) Leukocytosis Status: Acute (4) Multiple falls Status: Acute (5) Pneumonia Status: Acute (6) Stroke Status: Acute Review of Systems cannot review, non-verbal Medications Current Inpatient Medications Medications (Trade) Dose Ordered Sig/Ann Route Start Time Stop Time Status Last Admin Dose Admin Ondansetron HCl (Zofran Inj) 4 mg Q6H PRN IV 05/01/17 18:30 05/31/17 18:29 Morphine Sulfate (MoRPHine SULFATE INJ) 1 mg Q3H PRN IV 05/01/17 18:30 05/15/17 18:29 05/03/17 08:59 1 MG Scopolamine (Transderm-Scop Patch) 1.5 mg Q72H PRN TD 05/01/17 18:30 05/31/17 18:29 05/03/17 08:56 1.5 MG Lorazepam (Ativan Inj) 0.5 mg Q4H PRN IV 05/01/17 18:30 05/31/17 18:29 05/02/17 22:01 0.5 MG Morphine Sulfate/ Dextrose 250 ml @ 0 mls/hr Q0M PRN IV 05/03/17 09:15 05/17/17 09:14 05/03/17 09:34 5 MLS/HR Objective Vital Signs Date Time Temp Pulse Resp B/P (MAP) Pulse Ox O2 Delivery O2 Flow Rate FiO2 05/03/17 12:00 Nasal Cannula 4.0 05/03/17 08:00 BiPAP 05/03/17 07:11 86 26 94 BiPAP/CPAP 05/03/17 06:53 37.0 98 24 128/95 (106) 95 BiPAP 05/03/17 04:42 37.0 90 20 110/77 (88) 99 BiPAP 05/03/17 04:00 BiPAP 30 05/03/17 00:52 99 96 30 05/03/17 00:13 36.7 98 32 127/68 (87) 98 BiPAP 05/02/17 23:59 BiPAP 30 05/02/17 20:00 93 BiPAP 4.0 35 05/02/17 19:09 86 99 35 05/02/17 19:06 86 26 99 BiPAP/CPAP 35 05/02/17 19:00 36.4 87 27 111/70 (84) 99 BiPAP 05/02/17 16:00 BiPAP 05/02/17 15:32 90 30 94 BiPAP/CPAP 35 05/02/17 15:01 36.5 92 26 125/89 (101) 98 Room Air Physical Exam General Appearance: + mild distress, + thin Respiratory/Chest: chest non-tender, + respiratory distress, + decreased breath sounds, + accessory muscle use, + crackles Cardiovascular: no edema, no gallop, no JVD, no murmur, + tachycardia Abdomen: non tender, soft, no organomegaly, + abnormal bowel sounds (hypoactive ) Extremities: normal range of motion, non-tender, normal inspection, no pedal edema, no calf tenderness, pelvis stable Neurologic/Psychiatric: chin strap maker II-XII nml as tested, + motor weakness, + depressed affect, + disoriented Skin: normal color, warm/dry, no rash Laboratory Results Last 24 Hours Test 05/03/17 05:12 White Blood Count 10.98 K/uL Red Blood Count 3.92 M/uL Hemoglobin 11.9 g/dL Hematocrit 39.8 % Mean Corpuscular Volume 101.5 fL Mean Corpuscular Hemoglobin 30.4 pg Mean Corpuscular Hemoglobin Concent 29.9 g/dl RDW Standard Deviation 58.9 fL RDW Coefficient of Variation 15.9 % Platelet Count 144 K/uL Mean Platelet Volume 11.8 fL Sodium Level 153 mmol/L Potassium Level 3.5 mmol/L Chloride Level 117 mmol/L Carbon Dioxide Level 31 mmol/L Anion Gap 5.0 mmol/L Blood Urea Nitrogen 42 mg/dl Creatinine 1.10 mg/dl Est Creatinine Clear Calc Drug Dose 30.4 ml/min Estimated GFR () 52.6 Estimated GFR (Non- 45.4 BUN/Creatinine Ratio 38.2 Random Glucose 77 mg/dl Calcium Level 8.5 mg/dl Assessment and Plan Ms. Gonzalez is an 86 y/o female with PMHx of CVA x 2, Dementia, HLD, GERD, HTN, and Diastolic CHF who presents to the ED for acute respiratory distress. Patient is a resident of [facility]. She is non-verbal, bedridden, and has a PEG tube. Suspect Aspiration vs Healthcare-Associated PNA. Sepsis due to Aspiration pneumonia vs HCAP: - WBC down, afebrile, but unable to wean off of BIPAP - will stop antibiotics and make comfort care Acute Hypoxic Respiratory Failure: - cannot wean off of BIPAP, family would like to pursue comfort measures - morphine gtt ordered CVA - Nonverbal/Bedridden/PEG Tube: - Hold tube feedings overnight except for giving medications Chronic Diastolic CHF: - Patient appears dry but CTA with question of superimposed pleural effusion Comfort Measures: - morphine gtt DVT Prophylaxis: TONE/SCDs Code Status: DNR
[2017-05-03] MEDS ORDERED: VANCOMYCIN TROUGH SCH (13:30)
--- NOTE | 2017-05-03 14:40 | Death Pronouncement Note ---
Pronouncement Note Date & Time of May 03, 2017. 1310 Pronouncement At time of pronouncement the patients pupils were fixed and dilated, there was no spontaneous respiratory effort, no palpable pulse, no audible heart tones, and no response to pain or voice.
--- NOTE | 2017-05-03 14:43 | Death Summary ---
Summary of Admission Date May 01, 2017 at 18:23 Date & Time of May 03, 2017. 1310 Cause of Acute hypoxic respiratory failure Secondary Diagnoses Aspiration pneumonia Severe sepsis Dementia H/o CVA Hospital Course Ms. Gonzalez is an 86 y/o female with PMHx of CVA x 2, Dementia, HLD, GERD, HTN, and Diastolic CHF who presents to the ED for acute respiratory distress. Patient is a resident of [facility]. She is non-verbal, bedridden, and has a PEG tube. Suspect Aspiration vs Healthcare-Associated PNA. Sepsis due to Aspiration pneumonia vs HCAP: - WBC down, afebrile, but unable to wean off of BIPAP - will stop antibiotics and make comfort care Acute Hypoxic Respiratory Failure: - cannot wean off of BIPAP, family would like to pursue comfort measures - morphine gtt ordered CVA - Nonverbal/Bedridden/PEG Tube: - Hold tube feedings overnight except for giving medications Chronic Diastolic CHF: - Patient appears dry but CTA with question of superimposed pleural effusion Comfort Measures: - morphine gtt DVT Prophylaxis: TONE/SCDs Code Status: DNR patient peacefully on morphine drip, family notified Copy To Edin Yoon M.D.
== END 2017-05-03 15:31 | disposition expired | DRG 871 ==
LOC: EDBD 14:23 → C.EDC 14:25 → C.2E 18:23 → ENRESERV 18:45
PROVIDERS: ADMIT Internal Medicine; ATTEND Internal Medicine
DX: A41.9 Sepsis, unspecified organism (principal); J96.01 Acute respiratory failure with hypoxia; J69.0 Pneumonitis due to inhalation of food and vomit; I50.32 Chronic diastolic (congestive) heart failure; R65.20 Severe sepsis without septic shock; K21.9 Gastro-esophageal reflux disease without esophagitis; E78.5 Hyperlipidemia, unspecified; F03.90 Unspecified dementia, unspecified severity, without behavioral disturbance, psychotic disturbance, mood disturbance, and anxiety; I11.0 Hypertensive heart disease with heart failure; I69.320 Aphasia following cerebral infarction; Z66 Do not resuscitate; Z51.5 Encounter for palliative care; Z79.82 Long term (current) use of aspirin; Z79.899 Other long term (current) drug therapy